=== PATIENT | male | born 1970 | race Caucasian/White ===

== ENCOUNTER 2017-03-09 16:44 | Emergency (ER) | payer BC, OTHER ==
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
[2017-03-09 17:33] VITALS: BP 136/75; PULSE 65; RESP 20; TEMP 98.2; O2SAT 97
== END 2017-03-09 17:28 | disposition home or self-care (01) ==
DX: H60.332 Swimmer's ear, left ear (principal)

== ENCOUNTER 2018-02-14 01:31 | Emergency (ER) | payer OTHER ==
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
[2018-02-14 02:19] VITALS: BP 133/79
== END 2018-02-14 02:12 | disposition home or self-care (01) ==
DX: S61.250A Open bite of right index finger without damage to nail, initial encounter (principal); Y04.1XXA Assault by human bite, initial encounter